=== PATIENT | female | born 1950 | race Caucasian/White ===

== ENCOUNTER 2021-12-13 10:00 | Outpatient (CLI) | payer MEDICARE | END 2021-12-13 10:01 | disposition home or self-care (01) | LOC: BICMAMMO 10:00 | PROVIDERS: ATTEND Obstetrics & Gynecology | DX: Z12.31 Encounter for screening mammogram for malignant neoplasm of breast (principal); Z98.890 Other specified postprocedural states; Z85.3 Personal history of malignant neoplasm of breast; Z80.3 Family history of malignant neoplasm of breast | CPT/HCPCS: 77063; 77067 ==

== ENCOUNTER 2022-09-25 10:46 | Outpatient (CLI) | payer MEDICARE | END 2022-09-25 10:47 | disposition home or self-care (01) | LOC: BICMAMMO 10:46 | PROVIDERS: ATTEND Family Medicine | DX: Z13.820 Encounter for screening for osteoporosis (principal); Z78.0 Asymptomatic menopausal state; M85.89 Other specified disorders of bone density and structure, multiple sites | CPT/HCPCS: 77080 ==

== ENCOUNTER 2023-01-17 10:49 | Outpatient (CLI) | payer MEDICARE | END 2023-01-17 10:50 | disposition home or self-care (01) | LOC: BICMAMMO 10:49 | PROVIDERS: ATTEND Obstetrics & Gynecology | DX: Z12.31 Encounter for screening mammogram for malignant neoplasm of breast (principal) | CPT/HCPCS: 77063; 77067 ==